=== PATIENT | female | born 1960 | race Caucasian/White ===

== ENCOUNTER 2019-01-27 08:30 | Observation (INO) | payer BC ==
[2019-01-27] MEDS ORDERED: Sodium Chloride 0.9% 1,000 ML IV ONE ×2 (08:39→10:15)
[2019-01-27] MEDS ORDERED: Pantoprazole 40 MG Vial IVPUSH ONE (08:39)
[2019-01-27] MEDS ORDERED: Sodium Chloride 0.9% 10 ML Syringe FLUSH PRN (08:39)
[2019-01-27] MEDS ORDERED: Sodium Chloride 0.9% 2.5 ML Syringe FLUSH PRN (08:39)
[2019-01-27] MEDS ORDERED: Ondansetron 4 MG/2 ML SDV IVPUSH ONE ×2 (08:39→09:10)
--- NOTE | 2019-01-27 08:44 | EDM.PDOC ---
ED HPI GENERAL MEDICAL PROBLEM - General Chief Complaint: Gastrointestinal Problem Stated Complaint: THROWING UP Time Seen by Provider: 01/27/19 08:31 - History of Present Illness INITIAL COMMENTS - FREE TEXT/NARRATIVE: HISTORY AND PHYSICAL: History of present illness: The patient is a 58-year-old female with a history of type II insulin-requiring diabetes who follows in our clinic and presents with complaints of intractable vomiting that started over the last few days. The patient says she was seen in the clinic on Monday, January 23 due to episodic vomiting but not continuous vomiting and had blood work done as well as a UA. She was told that she had a UTI and started on antibiotic which she believes to be ciprofloxacin. She said she did not start the antibiotic until Monday. She says that the vomiting increased and now is intractable and yesterday afternoon and all last evening into this morning she has not been able to take anything by mouth. She was not told anything about her lab work that was performed on Monday. She has not had any specific abdominal pain and she's not sure if the antibiotic that she is taking she is even keeping down. She says she has had vomiting of bile and she has not had a bowel movement in the last few days. She's had no fevers chills or flank pain no chest pain or shortness of breath and feels very run down. She feels very thirsty and would like to drink but she cannot keep it down. She said her fasting blood sugar this morning was 200 which is very high for her. Patient has no GI history and has no abdominal surgical history Review of systems: As per history of present illness and below otherwise all systems reviewed and negative. Past medical history: As per history of present illness and as reviewed below otherwise noncontributory. Surgical history: As per history of present illness and as reviewed below otherwise noncontributory. Social history: No reported history of drug or alcohol abuse. Family history: As per history of present illness and as reviewed below otherwise noncontributory. Physical exam: General: Well-developed well-nourished female who is nontoxic appearing and vital signs were noted by me. There is no smell of ketones on her breath HEENT: Atraumatic, normocephalic, negative for conjunctival pallor or scleral icterus, mucous membranes very tacky and pasty, throat clear, neck supple, nontender, trachea midline. Lungs: Clear to auscultation, breath sounds equal bilaterally, chest nontender. Heart: S1S2, regular rhythm and slightly tachycardic rate on my evaluation no overt murmurs Abdomen: Soft, nondistended, nontender. Negative for masses or hepatosplenomegaly. Negative for costovertebral tenderness. Bowel sounds are slightly hypoactive and there is no rebound or guarding Pelvis: Stable nontender. Genitourinary: Deferred. Rectal: Deferred. Extremities: Atraumatic, negative for cords or calf pain. Neurovascular unremarkable. Neuro: Awake, alert, oriented. Cranial nerves II through XII unremarkable. Cerebellum unremarkable. Motor and sensory unremarkable throughout. Exam nonfocal. Diagnostics: CBC CMP amylase lipase H. pylori serum ketones UA with reflex hemoglobin A1c Therapeutics: IV fluids Zofran and Protonix Levaquin The patient's labs that were performed on January 23 were reviewed by me and are significant for a UTI with a positive culture with Escherichia coli which is sensitive to all antibiotics as well as a BUN of 61 and a creatinine of 2.7, a normal potassium and a bicarbonate of 23 and with a normal CBC Patient's testing results were discussed with her and at this point she is feeling much improved and continues to have no abdominal pain and now she has no nausea or vomiting. She only made a small amount of urine. I will hang a third liter of IV fluids and will discuss this case with Dr. Mcintosh for observation admission. 1140: Dr Mcintosh is here and aware of the patient and agrees for observation admission Impression: UTI, vomiting and dehydration Definitive disposition and diagnosis as appropriate pending reevaluation and review of above. abdominal pain Pain Score (Numeric/FACES): 8 - Related Data Allergies Allergy/AdvReac Type Severity Reaction Status Date / Time amoxicillin Allergy Itching Verified 04/13/15 09:35 Sulfa (Sulfonamide Allergy Itching Verified 04/13/15 09:35 Antibiotics) -statins Allergy Body Aches Uncoded 01/27/19 08:34 Home Meds: Home Meds Lisinopril/Hydrochlorothiazide [Lisinopril-HCTZ 10-12.5 MG] 1 tab PO DAILY 01/27 [History] Ozempic 2.5 units SUBCUT WEEKLY 01/27/19 [History] metFORMIN HCl [Metformin HCl] 1 tab PO BID 01/27/19 [History] ED ROS GENERAL - Review of Systems Review Of Systems: ROS reveals no pertinent complaints other than HPI. ED EXAM, GENERAL - Physical Exam Exam: See Below (See dictation) Course - Vital Signs Last Recorded V/S: Last Vital Signs Temp 36.8 C 01/27/19 08:35 Pulse 104 H 01/27/19 08:35 Resp 18 01/27/19 08:35 BP 172/88 H 01/27/19 08:35 Pulse Ox 99 01/27/19 08:35 - Orders/Labs/Meds Orders: Active Orders 24 hr Category Date Time Status Levofloxacin/Dextrose 5%-Water [Levaquin in D5W 500 MG/ Med 01/27/19 11:27 Active 100 ML] 500 mg Premix Bag 1 bag IV ONETIME Sodium Chloride 0.9% [Normal Saline] 1,000 ml Med 01/27/19 11:30 Active IV ASDIRECTED Sodium Chloride 0.9% [Saline Flush] Med 01/27/19 08:39 Active 10 ml FLUSH ASDIRECTED PRN Sodium Chloride 0.9% [Saline Flush] Med 01/27/19 08:39 Active 2.5 ml FLUSH ASDIRECTED PRN Saline Lock Insert [OM.PC] Stat Oth 01/27/19 08:39 Ordered Medication Orders Levofloxacin/Dextrose 500 mg/ (Premix) 100 mls @ 100 mls/hr IV ONETIME ONE Stop: 01/27/19 12:26 Last Admin: 01/27/19 11:40 Dose: 100 mls/hr Sodium Chloride (Normal Saline) 1,000 mls @ 150 mls/hr IV ASDIRECTED CLARISSA Last Admin: 01/27/19 11:30 Dose: 999 mls/hr Sodium Chloride (Saline Flush) 10 ml FLUSH ASDIRECTED PRN PRN Reason: Keep Vein Open Last Admin: 01/27/19 09:08 Dose: 10 ml Sodium Chloride (Saline Flush) 2.5 ml FLUSH ASDIRECTED PRN PRN Reason: Keep Vein Open Last Admin: 01/27/19 09:08 Dose: 2.5 ml Labs: Laboratory Tests 01/27/19 01/27/19 01/27/19 Range/Units 08:55 08:55 08:55 WBC 10.46 (4.0-11.0) K/uL RBC 4.59 (4.30-5.90) M/uL Hgb 12.6 (12.0-16.0) g/dL Hct 38.0 (36.0-46.0) % MCV 82.8 (80.0-98.0) fL MCH 27.5 (27.0-32.0) pg MCHC 33.2 (31.0-37.0) g/dL RDW Std Deviation 41.1 (28.0-62.0) fl RDW Coeff of Stefani 14 (11.0-15.0) % Plt Count 374 (150-400) K/uL MPV 10.80 (7.40-12.00) fL Neut % (Auto) 89.2 H (48.0-80.0) % Lymph % (Auto) 6.5 L (16.0-40.0) % Daniels % (Auto) 3.9 (0.0-15.0) % Eos % (Auto) 0.0 (0.0-7.0) % Baso % (Auto) 0.4 (0.0-1.5) % Neut # (Auto) 9.3 H (1.4-5.7) K/uL Lymph # (Auto) 0.7 (0.6-2.4) K/uL Daniels # (Auto) 0.4 (0.0-0.8) K/uL Eos # (Auto) 0.0 (0.0-0.7) K/uL Baso # (Auto) 0.0 (0.0-0.1) K/uL Nucleated RBC % 0.0 /100WBC Nucleated RBCs # 0 K/uL Sodium 138 (136-145) mmol/L Potassium 4.3 (3.5-5.1) mmol/L Chloride 98 (98-107) mmol/L Carbon Dioxide 20.9 L (21.0-32.0) mmol/L BUN 77 H (7.0-18.0) mg/dL Creatinine 3.4 H (0.6-1.0) mg/dL Est Cr Clr Drug Dosing 16.47 mL/min Estimated GFR (MDRD) 13.8 ml/min Glucose 223 H (74-106) mg/dL Hemoglobin A1c (4.5-6.2) % Calcium 9.6 (8.5-10.1) mg/dL Total Bilirubin 0.6 (0.2-1.0) mg/dL AST 8 L (15-37) IU/L ALT 16 (14-63) IU/L Alkaline Phosphatase 54 (46-116) U/L Total Protein 7.5 (6.4-8.2) g/dL Albumin 4.0 (3.4-5.0) g/dL Globulin 3.5 (2.6-4.0) g/dL Albumin/Globulin Ratio 1.1 (0.9-1.6) Amylase 43 (25-115) U/L Lipase 144 (73-393) U/L Urine Color Urine Appearance Urine pH (5.0-8.0) Ur Specific [place]oard (1.001-1.035) Urine Protein (NEGATIVE) mg/dL Urine Glucose (UA) (NEGATIVE) mg/dL Urine Ketones (NEGATIVE) mg/dL Urine Occult Blood (NEGATIVE) Urine Nitrite (NEGATIVE) Urine Bilirubin (NEGATIVE) Urine Ictotest Urine Urobilinogen (<2.0) EU/dL Ur Leukocyte Esterase (NEGATIVE) Urine RBC (0-2/HPF) Urine WBC (0-5/HPF) Ur Epithelial Cells (NONE-FEW) Urine Bacteria (NEGATIVE) Hyaline Casts (0-2/LPF) Ketones SMALL H (NEG) H. pylori IgG Antibody (NEG) 01/27/19 01/27/19 01/27/19 Range/Units 08:55 08:55 10:48 WBC (4.0-11.0) K/uL RBC (4.30-5.90) M/uL Hgb (12.0-16.0) g/dL Hct (36.0-46.0) % MCV (80.0-98.0) fL MCH (27.0-32.0) pg MCHC (31.0-37.0) g/dL RDW Std Deviation (28.0-62.0) fl RDW Coeff of Stefani (11.0-15.0) % Plt Count (150-400) K/uL MPV (7.40-12.00) fL Neut % (Auto) (48.0-80.0) % Lymph % (Auto) (16.0-40.0) % Daniels % (Auto) (0.0-15.0) % Eos % (Auto) (0.0-7.0) % Baso % (Auto) (0.0-1.5) % Neut # (Auto) (1.4-5.7) K/uL Lymph # (Auto) (0.6-2.4) K/uL Daniels # (Auto) (0.0-0.8) K/uL Eos # (Auto) (0.0-0.7) K/uL Baso # (Auto) (0.0-0.1) K/uL Nucleated RBC % /100WBC Nucleated RBCs # K/uL Sodium (136-145) mmol/L Potassium (3.5-5.1) mmol/L Chloride (98-107) mmol/L Carbon Dioxide (21.0-32.0) mmol/L BUN (7.0-18.0) mg/dL Creatinine (0.6-1.0) mg/dL Est Cr Clr Drug Dosing mL/min Estimated GFR (MDRD) ml/min Glucose (74-106) mg/dL Hemoglobin A1c 7.1 H (4.5-6.2) % Calcium (8.5-10.1) mg/dL Total Bilirubin (0.2-1.0) mg/dL AST (15-37) IU/L ALT (14-63) IU/L Alkaline Phosphatase (46-116) U/L Total Protein (6.4-8.2) g/dL Albumin (3.4-5.0) g/dL Globulin (2.6-4.0) g/dL Albumin/Globulin Ratio (0.9-1.6) Amylase (25-115) U/L Lipase (73-393) U/L Urine Color YELLOW Urine Appearance CLEAR Urine pH 5.0 (5.0-8.0) Ur Specific [place] 1.025 (1.001-1.035) Urine Protein TRACE H (NEGATIVE) mg/dL Urine Glucose (UA) 250 H (NEGATIVE) mg/dL Urine Ketones 15 H (NEGATIVE) mg/dL Urine Occult Blood TRACE-LYSED H (NEGATIVE) Urine Nitrite NEGATIVE (NEGATIVE) Urine Bilirubin SMALL H (NEGATIVE) Urine Ictotest NEGATIVE Urine Urobilinogen 0.2 (<2.0) EU/dL Ur Leukocyte Esterase NEGATIVE (NEGATIVE) Urine RBC 0-1 (0-2/HPF) Urine WBC 2-4 (0-5/HPF) Ur Epithelial Cells MODERATE (NONE-FEW) Urine Bacteria FEW (NEGATIVE) Hyaline Casts 1-2 (0-2/LPF) Ketones (NEG) H. pylori IgG Antibody NEGATIVE (NEG) Meds: Medications Generic Name Dose Route Start Last Admin Trade Name Losq PRN Reason Stop Dose Admin Levofloxacin/Dextrose 500 mg/ 100 mls @ 100 mls/hr 01/27/19 11:27 01/27/19 11 :40 Premix IV 01/27/19 12:26 100 mls/hr ONETIME ONE Administration Sodium Chloride 1,000 mls @ 150 mls/hr 01/27/19 11:30 01/27/19 11:30 Normal Saline IV 999 mls/hr ASDIRECTED CLARISSA Administration Sodium Chloride 10 ml 01/27/19 08:39 01/27/19 09:08 Saline Flush FLUSH 10 ml ASDIRECTED PRN Administration Keep Vein Open Sodium Chloride 2.5 ml 01/27/19 08:39 01/27/19 09:08 Saline Flush FLUSH 2.5 ml ASDIRECTED PRN Administration Keep Vein Open Discontinued Medications Generic Name Dose Route Start Last Admin Trade Name Losq PRN Reason Stop Dose Admin Sodium Chloride 1,000 mls @ 999 mls/hr 01/27/19 08:39 01/27/19 09:03 Normal Saline IV 01/27/19 09:39 999 mls/hr STAT ONE Administration Sterile Water Confirm 01/27/19 09:01 01/27/19 09:15 Sterile Water For Injection Administered 01/27/19 09:02 Not Given Dose 20 mls @ as directed .ROUTE .STK-MED ONE Sodium Chloride 1,000 mls @ 999 mls/hr 01/27/19 10:15 01/27/19 10:15 Normal Saline IV 01/27/19 11:15 999 mls/hr .Bolus ONE Administration Ondansetron HCl 4 mg 01/27/19 08:39 01/27/19 09:05 Zofran IVPUSH 01/27/19 08:40 4 mg ONETIME ONE Administration Ondansetron HCl 4 mg 01/27/19 09:10 01/27/19 09:18 Zofran IVPUSH 01/27/19 09:11 4 mg ONETIME ONE Administration Pantoprazole Sodium 80 mg 01/27/19 08:39 01/27/19 09:10 Protonix Iv IVPUSH 01/27/19 08:40 80 mg .BOLUS ONE Administration Departure - Departure Time of Disposition: 11:46 Disposition: Refer to Observation Condition: Good Clinical Impression: Vomiting, Dehydration UTI (urinary tract infection) Qualifiers: Urinary tract infection type: site unspecified Hematuria presence: without hematuria Qualified Code(s): N39.0 - Urinary tract infection, site not specified - Discharge Information Referrals: PCP,Unknown [Primary Care Provider] - Forms: ED Department Discharge - My Orders Last 24 Hours: My Active Orders 01/27/19 08:39 Sodium Chloride 0.9% [Saline Flush] 10 ml FLUSH ASDIRECTED PRN Sodium Chloride 0.9% [Saline Flush] 2.5 ml FLUSH ASDIRECTED PRN Saline Lock Insert [OM.PC] Stat 01/27/19 11:27 Levofloxacin/Dextrose 5%-Water [Levaquin in D5W 500 MG/100 ML] 500 mg Premix Bag 1 bag IV ONETIME 01/27/19 11:30 Sodium Chloride 0.9% [Normal Saline] 1,000 ml IV ASDIRECTED - Assessment/Plan Last 24 Hours: My Active Orders 01/27/19 08:39 Sodium Chloride 0.9% [Saline Flush] 10 ml FLUSH ASDIRECTED PRN Sodium Chloride 0.9% [Saline Flush] 2.5 ml FLUSH ASDIRECTED PRN Saline Lock Insert [OM.PC] Stat 01/27/19 11:27 Levofloxacin/Dextrose 5%-Water [Levaquin in D5W 500 MG/100 ML] 500 mg Premix Bag 1 bag IV ONETIME 01/27/19 11:30 Sodium Chloride 0.9% [Normal Saline] 1,000 ml IV ASDIRECTED
[2019-01-27] MEDS ORDERED: Water For Injection, Sterile 20 ML ONE (09:01)
[2019-01-27 09:23] LABS: HEMOGLOBIN A1C 7.1 % (4.5-6.2)
[2019-01-27] MEDS ORDERED: Levofloxacin/Dextrose 5%-Water 500 MG in Premix Bag 1 BAG IV ONE (11:27)
[2019-01-27] MEDS ORDERED: Sodium Chloride 0.9% 1,000 ML IV SCH (11:30)
[2019-01-27] MEDS ORDERED: oxyCODONE 5 MG Tab PO PRN (12:19)
[2019-01-27] MEDS ORDERED: Acetaminophen 325 MG Tab PO PRN (12:19)
[2019-01-27] MEDS ORDERED: Temazepam 15 MG Cap PO PRN (12:19)
[2019-01-27] MEDS ORDERED: Ondansetron 4 MG/2 ML SDV IVPUSH PRN (12:19)
[2019-01-27] MEDS ORDERED: Docusate Sodium 100 MG Cap PO PRN (12:19)
[2019-01-27] MEDS ORDERED: Enoxaparin 30 MG/0.3 ML Syringe SUBCUT SCH (12:30)
--- NOTE | 2019-01-27 12:38 | PCM.HP ---
H&P History of Present Illness - General Date of Service: 01/27/19 Admit Problem/Dx: Admission Diagnosis/Problem Admission Diagnosis/Problem Dehydration, UTI, poorly controlled diabetes, intractable nausea and vomiting Source of Information: Patient History Limitations: Reports: No Limitations - History of Present Illness Initial Comments - Free Text/Narative: The patient is a 58-year-old lady who presented to the emergency department with the chief complaint of nausea and vomiting. She has diabetes mellitus type 2 and had been recently started on the medication. Patient reports that she has been throwing up and unable to keep any medications down for at least the past week. She feels that she is very dehydrated. The patient also had been told that she was been started on an antibiotic for urinary tract infection which she has not been able to keep down. The patient had been on ciprofloxacin. The patient says that she has not had any fever or chills. No flank pain. No short of breath. She just feels very fatigued. She is also admitting to extreme thirst and not been able to keep fluid and food down. The patient has denied any hematemesis. The patient has been in her usual state of health. She admits to having poorly controlled diabetes and reportedly her last hemoglobin A1c was around 9%. Onset of Symptoms: Reports: Gradual Duration of Symptoms: Reports: Day(s): Location: Reports: Abdomen Quality: Reports: Ache Improves with: Reports: Rest Worsens with: Reports: Eating Context: Denies: Sick Contact Associated Symptoms: Reports: Loss of Appetite, Malaise abdominal pain Pain Score (Numeric/FACES): 8 - Related Data Allergies/Adverse Reactions: Allergies Allergy/AdvReac Type Severity Reaction Status Date / Time amoxicillin Allergy Itching Verified 04/13/15 09:35 Sulfa (Sulfonamide Allergy Itching Verified 04/13/15 09:35 Antibiotics) -statins Allergy Body Aches Uncoded 01/27/19 08:34 Home Medications: Home Meds Lisinopril/Hydrochlorothiazide [Lisinopril-HCTZ 10-12.5 MG] 2 tab PO DAILY 01/27 [History] Ozempic 2.5 units SUBCUT WEEKLY 01/27/19 [History] metFORMIN HCl [Metformin HCl] 1,000 mg PO BID 01/27/19 [History] Past Medical History HEENT History: Reports: Allergic Rhinitis Cardiovascular History: Reports: Hypertension, Other (See Below) 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 Respiratory History: Reports: None Gastrointestinal History: Reports: None Genitourinary History: Reports: Chronic Renal Insuffiency, UTI, Recurrent Musculoskeletal History: Reports: None Neurological History: Reports: None Psychiatric History: Reports: None Endocrine/Metabolic History: Reports: Diabetes, Type II, Obesity/BMI 30+ Hematologic History: Reports: None Immunologic History: Reports: None Dermatologic History: Reports: None - Infectious Disease History Infectious Disease History: Reports: Chicken Pox - Past Surgical History HEENT Surgical History: Reports: Oral Surgery Social & Family History - Tobacco Use Smoking Status *Q: Never Smoker - Alcohol Use Alcohol Use History: No - Recreational Drug Use Recreational Drug Use: No - Living Situation & Occupation Living situation: Reports: , with Spouse Occupation: Employed H&P Review of Systems - Review of Systems: Review Of Systems: See Below General: Reports: Malaise, Weakness HEENT: Reports: No Symptoms Pulmonary: Reports: No Symptoms Cardiovascular: Reports: No Symptoms Gastrointestinal: Reports: Abdominal Pain, Anorexia, Nausea, Vomiting Genitourinary: Reports: Burning, Pain Musculoskeletal: Reports: No Symptoms Skin: Reports: No Symptoms Psychiatric: Reports: No Symptoms Neurological: Reports: No Symptoms Hematologic/Lymphatic: Reports: No Symptoms Immunologic: Reports: No Symptoms Exam - Exam Exam: See Below - Vital Signs Vital Signs: Last Vital Signs Temp 36.8 C 01/27/19 08:35 Pulse 104 H 01/27/19 08:35 Resp 18 01/27/19 08:35 BP 172/88 H 01/27/19 08:35 Pulse Ox 99 01/27/19 08:35 Weight: 85.275 kg - Exam Quality Assessment: Supplemental Oxygen General: Alert, Oriented, Cooperative, Mild Distress HEENT: Conjunctiva Clear, EACs Clear, EOMI, Pupils Equal, PERRLA. No: Mucosa Moist & [place] (Dry) Neck: Supple, Trachea Midline. No: Carotid Bruit Lungs: Clear to Auscultation, Normal Respiratory Effort Cardiovascular: Regular Rate, Regular Rhythm GI/Abdominal Exam: Normal Bowel Sounds, Soft, Non-Tender, No Distention, Other ( Obese) Back Exam: Normal Inspection, Full Range of Motion Extremities: Normal Inspection, No Pedal Edema Skin: Warm, Dry, Intact Neurological: Cranial Nerves Intact Neuro Extensive - Mental Status: Alert, Oriented x3 Psychiatric: Alert, Normal Affect, Normal Mood - Patient Data Lab Results Last 24 hrs: Laboratory Results - last 24 hr 01/27/19 01/27/19 01/27/19 Range/Units 08:55 08:55 08:55 WBC 10.46 (4.0-11.0) K/uL RBC 4.59 (4.30-5.90) M/uL Hgb 12.6 (12.0-16.0) g/dL Hct 38.0 (36.0-46.0) % MCV 82.8 (80.0-98.0) fL MCH 27.5 (27.0-32.0) pg MCHC 33.2 (31.0-37.0) g/dL RDW Std Deviation 41.1 (28.0-62.0) fl RDW Coeff of Stefani 14 (11.0-15.0) % Plt Count 374 (150-400) K/uL MPV 10.80 (7.40-12.00) fL Neut % (Auto) 89.2 H (48.0-80.0) % Lymph % (Auto) 6.5 L (16.0-40.0) % [place] % (Auto) 3.9 (0.0-15.0) % Eos % (Auto) 0.0 (0.0-7.0) % Baso % (Auto) 0.4 (0.0-1.5) % Neut # (Auto) 9.3 H (1.4-5.7) K/uL Lymph # (Auto) 0.7 (0.6-2.4) K/uL [place] # (Auto) 0.4 (0.0-0.8) K/uL Eos # (Auto) 0.0 (0.0-0.7) K/uL Baso # (Auto) 0.0 (0.0-0.1) K/uL Nucleated RBC % 0.0 /100WBC Nucleated RBCs # 0 K/uL Sodium 138 (136-145) mmol/L Potassium 4.3 (3.5-5.1) mmol/L Chloride 98 (98-107) mmol/L Carbon Dioxide 20.9 L (21.0-32.0) mmol/L BUN 77 H (7.0-18.0) mg/dL Creatinine 3.4 H (0.6-1.0) mg/dL Est Cr Clr Drug Dosing 16.47 mL/min Estimated GFR (MDRD) 13.8 ml/min Glucose 223 H (74-106) mg/dL Hemoglobin A1c (4.5-6.2) % Calcium 9.6 (8.5-10.1) mg/dL Total Bilirubin 0.6 (0.2-1.0) mg/dL AST 8 L (15-37) IU/L ALT 16 (14-63) IU/L Alkaline Phosphatase 54 (46-116) U/L Total Protein 7.5 (6.4-8.2) g/dL Albumin 4.0 (3.4-5.0) g/dL Globulin 3.5 (2.6-4.0) g/dL Albumin/Globulin Ratio 1.1 (0.9-1.6) Amylase 43 (25-115) U/L Lipase 144 (73-393) U/L Urine Color Urine Appearance Urine pH (5.0-8.0) Ur Specific [place] (1.001-1.035) Urine Protein (NEGATIVE) mg/dL Urine Glucose (UA) (NEGATIVE) mg/dL Urine Ketones (NEGATIVE) mg/dL Urine Occult Blood (NEGATIVE) Urine Nitrite (NEGATIVE) Urine Bilirubin (NEGATIVE) Urine Ictotest Urine Urobilinogen (<2.0) EU/dL Ur Leukocyte Esterase (NEGATIVE) Urine RBC (0-2/HPF) Urine WBC (0-5/HPF) Ur Epithelial Cells (NONE-FEW) Urine Bacteria (NEGATIVE) Hyaline Casts (0-2/LPF) Ketones SMALL H (NEG) H. pylori IgG Antibody (NEG) 01/27/19 01/27/19 01/27/19 Range/Units 08:55 08:55 10:48 WBC (4.0-11.0) K/uL RBC (4.30-5.90) M/uL Hgb (12.0-16.0) g/dL Hct (36.0-46.0) % MCV (80.0-98.0) fL MCH (27.0-32.0) pg MCHC (31.0-37.0) g/dL RDW Std Deviation (28.0-62.0) fl RDW Coeff of Stefani (11.0-15.0) % Plt Count (150-400) K/uL MPV (7.40-12.00) fL Neut % (Auto) (48.0-80.0) % Lymph % (Auto) (16.0-40.0) % [place] % (Auto) (0.0-15.0) % Eos % (Auto) (0.0-7.0) % Baso % (Auto) (0.0-1.5) % Neut # (Auto) (1.4-5.7) K/uL Lymph # (Auto) (0.6-2.4) K/uL [place] # (Auto) (0.0-0.8) K/uL Eos # (Auto) (0.0-0.7) K/uL Baso # (Auto) (0.0-0.1) K/uL Nucleated RBC % /100WBC Nucleated RBCs # K/uL Sodium (136-145) mmol/L Potassium (3.5-5.1) mmol/L Chloride (98-107) mmol/L Carbon Dioxide (21.0-32.0) mmol/L BUN (7.0-18.0) mg/dL Creatinine (0.6-1.0) mg/dL Est Cr Clr Drug Dosing mL/min Estimated GFR (MDRD) ml/min Glucose (74-106) mg/dL Hemoglobin A1c 7.1 H (4.5-6.2) % Calcium (8.5-10.1) mg/dL Total Bilirubin (0.2-1.0) mg/dL AST (15-37) IU/L ALT (14-63) IU/L Alkaline Phosphatase (46-116) U/L Total Protein (6.4-8.2) g/dL Albumin (3.4-5.0) g/dL Globulin (2.6-4.0) g/dL Albumin/Globulin Ratio (0.9-1.6) Amylase (25-115) U/L Lipase (73-393) U/L Urine Color YELLOW Urine Appearance CLEAR Urine pH 5.0 (5.0-8.0) Ur Specific [place] 1.025 (1.001-1.035) Urine Protein TRACE H (NEGATIVE) mg/dL Urine Glucose (UA) 250 H (NEGATIVE) mg/dL Urine Ketones 15 H (NEGATIVE) mg/dL Urine Occult Blood TRACE-LYSED H (NEGATIVE) Urine Nitrite NEGATIVE (NEGATIVE) Urine Bilirubin SMALL H (NEGATIVE) Urine Ictotest NEGATIVE Urine Urobilinogen 0.2 (<2.0) EU/dL Ur Leukocyte Esterase NEGATIVE (NEGATIVE) Urine RBC 0-1 (0-2/HPF) Urine WBC 2-4 (0-5/HPF) Ur Epithelial Cells MODERATE (NONE-FEW) Urine Bacteria FEW (NEGATIVE) Hyaline Casts 1-2 (0-2/LPF) Ketones (NEG) H. pylori IgG Antibody NEGATIVE (NEG) Result Diagrams: 01/27/19 08:55 01/27/19 08:55 - Problem List (1) UTI (urinary tract infection) SNOMED Code(s): 43339302 ICD Code: N39.0 - URINARY TRACT INFECTION, SITE NOT SPECIFIED Status: Acute Priority: High Current Visit: Yes Qualifiers: Urinary tract infection type: site unspecified Hematuria presence: without hematuria Qualified Code(s): N39.0 - Urinary tract infection, site not specified (2) Intractable nausea and vomiting SNOMED Code(s): 578739059 ICD Code: R11.2 - NAUSEA WITH VOMITING, UNSPECIFIED Status: Acute Priority: High Current Visit: Yes Qualifiers: Vomiting type: unspecified Qualified Code(s): R11.2 - Nausea with vomiting , unspecified (3) Diabetes mellitus type 2, uncontrolled, with complications SNOMED Code(s): 96755517, 040731357 ICD Code: E11.8 - TYPE 2 DIABETES MELLITUS WITH UNSPECIFIED COMPLICATIONS; E11.65 - TYPE 2 DIABETES MELLITUS WITH HYPERGLYCEMIA Status: Chronic Priority: High Current Visit: Yes (4) Hypertension SNOMED Code(s): 63935880 ICD Code: I10 - ESSENTIAL (PRIMARY) HYPERTENSION Status: Chronic Priority : High Current Visit: Yes Qualifiers: Hypertension type: essential hypertension Qualified Code(s): I10 - Essential (primary) hypertension (5) Obesity (BMI 30-39.9) SNOMED Code(s): 882727484, 276389722 ICD Code: E66.9 - OBESITY, UNSPECIFIED Status: Chronic Priority: Medium Current Visit: Yes (6) Dehydration SNOMED Code(s): 29880216 ICD Code: E86.0 - DEHYDRATION Status: Acute Priority: High Current Visit: Yes Problem List Initiated/Reviewed/Updated: Yes Orders Last 24hrs: Active Orders 24 hr Category Date Time Status Patient Status [ADT] Stat ADT 01/27/19 11:46 Active Blood Glucose Check, Bedside [RC] WITHMEALSANDBED Care 01/27/19 12:19 Active Diabetes Education [RC] Click to Edit Care 01/27/19 12:21 Active Oxygen Therapy [RC] PRN Care 01/27/19 12:19 Active VTE/DVT Education [RC] PER UNIT ROUTINE Care 01/27/19 12:19 Active Vital Signs [RC] Q4H Care 01/27/19 12:19 Active [place] [employer] Diet [DIET] Diet 01/27/19 Lunch Active CBC WITH AUTO DIFF [HEME] AM Lab 01/28/19 05:11 Ordered COMPREHENSIVE METABOLIC PN,CMP [CHEM] AM Lab 01/28/19 05:11 Ordered Acetaminophen [Tylenol] Med 01/27/19 12:19 Active 650 mg PO Q4H PRN Docusate Sodium [Colace] Med 01/27/19 12:19 Active 100 mg PO BID PRN Enoxaparin [Lovenox] Med 01/27/19 12:30 Active 30 mg SUBCUT Q24H Insulin Aspart [NovoLOG] Med 01/27/19 21:00 Active See Protocol SUBCUT ACBREAKFASTANDBED Lisinopril/Hydrochlorothiazide [Lisinopril-HCTZ 10-12.5 Med 01/28/19 09:00 Active MG] 1 tab PO DAILY Ondansetron [Zofran] Med 01/27/19 12:19 Active 4 mg IVPUSH Q6H PRN Sodium Chloride 0.9% [Normal Saline] 1,000 ml Med 01/27/19 11:30 Active IV ASDIRECTED Sodium Chloride 0.9% [Normal Saline] 1,000 ml Med 01/27/19 12:30 Active IV ASDIRECTED Sodium Chloride 0.9% [Saline Flush] Med 01/27/19 08:39 Active 10 ml FLUSH ASDIRECTED PRN Sodium Chloride 0.9% [Saline Flush] Med 01/27/19 08:39 Active 2.5 ml FLUSH ASDIRECTED PRN Temazepam [Restoril] Med 01/27/19 12:19 Active 15 mg PO BEDTIME PRN oxyCODONE Med 01/27/19 12:19 Active 5 mg PO Q4H PRN Glucose Management Sub Q Reflex [OM.PC] Click To Edit Oth 01/27/19 12:19 Ordered Saline Lock Insert [OM.PC] Stat Oth 01/27/19 08:39 Ordered Resuscitation Status Routine Resus Stat 01/27/19 12:19 Ordered Medication Orders Acetaminophen (Tylenol) 650 mg PO Q4H PRN PRN Reason: Pain (Mild 1-3)/fever Docusate Sodium (Colace) 100 mg PO BID PRN PRN Reason: Constipation Enoxaparin Sodium (Lovenox) 30 mg SUBCUT Q24H [facility] Lisinopril/HCTZ (Lisinopril-Hctz 10-12.5 Mg) 1 tab PO DAILY [facility] Sodium Chloride (Normal Saline) 1,000 mls @ 150 mls/hr IV ASDIRECTED [facility] Last Admin: 01/27/19 11:30 Dose: 999 mls/hr Sodium Chloride (Normal Saline) 1,000 mls @ 125 mls/hr IV ASDIRECTED [facility] Insulin Aspart (Novolog) 0 unit SUBCUT ACBREAKFASTANDBED [facility]; Protocol Ondansetron HCl (Zofran) 4 mg IVPUSH Q6H PRN PRN Reason: Nausea/Vomiting Oxycodone HCl (Oxycodone) 5 mg PO Q4H PRN PRN Reason: Pain (moderate 4-6) Sodium Chloride (Saline Flush) 10 ml FLUSH ASDIRECTED PRN PRN Reason: Keep Vein Open Last Admin: 01/27/19 09:08 Dose: 10 ml Sodium Chloride (Saline Flush) 2.5 ml FLUSH ASDIRECTED PRN PRN Reason: Keep Vein Open Last Admin: 01/27/19 09:08 Dose: 2.5 ml Temazepam (Restoril) 15 mg PO BEDTIME PRN PRN Reason: Sleep Assessment/Plan Comment:: The patient is a 58-year-old lady who has been admitted primarily out of concern for intractable nausea and vomiting. She is also dehydrated and therefore will be kept on IV normal saline at 125 mL per hour. The patient also be kept on moderate dose sliding scale insulin with Accu-Cheks before meals and at bedtime. The patient will have diabetic diet as appropriate as tolerated. The patient has a partially treated UTI and cultures are currently pending. The patient also will have Rocephin 1 g IV starting tomorrow. The patient is also noted to have a reduction in her EGFR with a BU in a 77 and creatinine of 3.4. The patient likely has chronic kidney disease and with hydration she should experience some improvement in her EGFR. The patient will be kept on heparin for DVT prophylaxis as well as encouraging ambulation. I hemoglobin A1c has been ordered and it shows that 7.1%. The concern is that the patient may have developed diabetic gastroparesis although this is less likely and may be the result of new medication or ciprofloxacin. With the patient's symptoms resolved and her dehydration improved to likely be appropriate for discharge in 1-2 days.
[2019-01-27] MEDS ORDERED: Heparin Sodium 5,000 Units/ML Vial SUBCUT SCH (15:45)
[2019-01-27] MEDS ORDERED: Promethazine 25 MG/ML SDV IM PRN (16:08)
[2019-01-27] MEDS: Heparin Sodium 5,000 Units/ML Vial SUBCUT SCH (16:10)
[2019-01-27] MEDS: Insulin Aspart 100 Units/ML 3 ML Pen SUBCUT SCH ×2 (16:15→21:56)
[2019-01-27] MEDS: Sodium Chloride 0.9% 1,000 ML IV SCH (17:14)
[2019-01-27] MEDS ORDERED: Insulin Aspart 100 Units/ML 3 ML Pen SUBCUT SCH (21:00)
[2019-01-28] MEDS: Sodium Chloride 0.9% 1,000 ML IV SCH ×3 (01:29→18:22)
[2019-01-28] MEDS: Heparin Sodium 5,000 Units/ML Vial SUBCUT SCH ×3 (06:32→21:01)
[2019-01-28] MEDS: Insulin Aspart 100 Units/ML 3 ML Pen SUBCUT SCH ×4 (07:24→20:56)
[2019-01-28] MEDS: Lisinopril/Hydrochlorothiazide 10-12.5 MG Tab PO SCH (09:20)
[2019-01-28] MEDS: cefTRIAXone 1 GM in Premix Bag 1 BAG IV SCH (09:21)
--- NOTE | 2019-01-28 10:41 | PCM.PN ---
- General Info Date of Service: 01/28/19 Subjective Update: 58F hx of T2DM, presenting with MERY, nausea and vomiting presumed to be secondary to medication s/e or UTI. She feels much better today, has been tolerating PO well. She denies any nausea, fever today. She denies any pain, dysuria. - Review of Systems General: Reports: Other (see hpi) - Patient Data Vitals - Most Recent: Last Vital Signs Temp 36.2 C 01/28/19 08:00 Pulse 90 01/28/19 08:00 Resp 16 01/28/19 08:00 BP 149/86 H 01/28/19 08:00 Pulse Ox 97 01/28/19 08:00 Weight - Most Recent: 85.275 kg I&O - Last 24 Hours: Intake & Output 01/27/19 01/28/19 01/28/19 22:59 06:59 14:59 Intake Total 819 1319 340 Output Total 350 1100 Balance 469 219 340 Lab Results Last 24 Hours: Laboratory Results - last 24 hr 01/27/19 01/27/19 01/27/19 Range/Units 10:48 16:11 20:42 WBC (4.0-11.0) K/uL RBC (4.30-5.90) M/uL Hgb (12.0-16.0) g/dL Hct (36.0-46.0) % MCV (80.0-98.0) fL MCH (27.0-32.0) pg MCHC (31.0-37.0) g/dL RDW Std Deviation (28.0-62.0) fl RDW Coeff of Stefani (11.0-15.0) % Plt Count (150-400) K/uL MPV (7.40-12.00) fL Neut % (Auto) (48.0-80.0) % Lymph % (Auto) (16.0-40.0) % [place] % (Auto) (0.0-15.0) % Eos % (Auto) (0.0-7.0) % Baso % (Auto) (0.0-1.5) % Neut # (Auto) (1.4-5.7) K/uL Lymph # (Auto) (0.6-2.4) K/uL [place] # (Auto) (0.0-0.8) K/uL Eos # (Auto) (0.0-0.7) K/uL Baso # (Auto) (0.0-0.1) K/uL Nucleated RBC % /100WBC Nucleated RBCs # K/uL Sodium (136-145) mmol/L Potassium (3.5-5.1) mmol/L Chloride (98-107) mmol/L Carbon Dioxide (21.0-32.0) mmol/L BUN (7.0-18.0) mg/dL Creatinine (0.6-1.0) mg/dL Est Cr Clr Drug Dosing mL/min Estimated GFR (MDRD) ml/min Glucose (74-106) mg/dL POC Glucose 116 H 122 H (60-110) mg/dL Calcium (8.5-10.1) mg/dL Total Bilirubin (0.2-1.0) mg/dL AST (15-37) IU/L ALT (14-63) IU/L Alkaline Phosphatase (46-116) U/L Total Protein (6.4-8.2) g/dL Albumin (3.4-5.0) g/dL Globulin (2.6-4.0) g/dL Albumin/Globulin Ratio (0.9-1.6) Vitamin B12 (193-986) pg/mL Folate (8.60-58.90) ng/mL Urine Color YELLOW Urine Appearance CLEAR Urine pH 5.0 (5.0-8.0) Ur Specific [place] 1.025 (1.001-1.035) Urine Protein TRACE H (NEGATIVE) mg/dL Urine Glucose (UA) 250 H (NEGATIVE) mg/dL Urine Ketones 15 H (NEGATIVE) mg/dL Urine Occult Blood TRACE-LYSED H (NEGATIVE) Urine Nitrite NEGATIVE (NEGATIVE) Urine Bilirubin SMALL H (NEGATIVE) Urine Ictotest NEGATIVE Urine Urobilinogen 0.2 (<2.0) EU/dL Ur Leukocyte Esterase NEGATIVE (NEGATIVE) Urine RBC 0-1 (0-2/HPF) Urine WBC 2-4 (0-5/HPF) Ur Epithelial Cells MODERATE (NONE-FEW) Urine Bacteria FEW (NEGATIVE) Hyaline Casts 1-2 (0-2/LPF) 01/28/19 01/28/19 01/28/19 Range/Units 06:10 06:13 06:13 WBC 7.23 (4.0-11.0) K/uL RBC 3.71 L (4.30-5.90) M/uL Hgb 10.2 L (12.0-16.0) g/dL Hct 30.6 L (36.0-46.0) % MCV 82.5 (80.0-98.0) fL MCH 27.5 (27.0-32.0) pg MCHC 33.3 (31.0-37.0) g/dL RDW Std Deviation 41.3 (28.0-62.0) fl RDW Coeff of Stefani 14 (11.0-15.0) % Plt Count 271 (150-400) K/uL MPV 10.20 (7.40-12.00) fL Neut % (Auto) 65.9 (48.0-80.0) % Lymph % (Auto) 20.7 (16.0-40.0) % [place] % (Auto) 11.6 (0.0-15.0) % Eos % (Auto) 1.2 (0.0-7.0) % Baso % (Auto) 0.6 (0.0-1.5) % Neut # (Auto) 4.8 (1.4-5.7) K/uL Lymph # (Auto) 1.5 (0.6-2.4) K/uL [place] # (Auto) 0.8 (0.0-0.8) K/uL Eos # (Auto) 0.1 (0.0-0.7) K/uL Baso # (Auto) 0.0 (0.0-0.1) K/uL Nucleated RBC % 0.0 /100WBC Nucleated RBCs # 0 K/uL Sodium 141 (136-145) mmol/L Potassium 3.8 (3.5-5.1) mmol/L Chloride 106 (98-107) mmol/L Carbon Dioxide 23.9 (21.0-32.0) mmol/L BUN 47 H (7.0-18.0) mg/dL Creatinine 2.0 H (0.6-1.0) mg/dL Est Cr Clr Drug Dosing 28.00 mL/min Estimated GFR (MDRD) 25.4 ml/min Glucose 100 (74-106) mg/dL POC Glucose 97 (60-110) mg/dL Calcium 8.4 L (8.5-10.1) mg/dL Total Bilirubin 0.5 (0.2-1.0) mg/dL AST 10 L (15-37) IU/L ALT 10 L (14-63) IU/L Alkaline Phosphatase 40 L (46-116) U/L Total Protein 5.8 L (6.4-8.2) g/dL Albumin 3.0 L (3.4-5.0) g/dL Globulin 2.8 (2.6-4.0) g/dL Albumin/Globulin Ratio 1.1 (0.9-1.6) Vitamin B12 (193-986) pg/mL Folate (8.60-58.90) ng/mL Urine Color Urine Appearance Urine pH (5.0-8.0) Ur Specific [place] (1.001-1.035) Urine Protein (NEGATIVE) mg/dL Urine Glucose (UA) (NEGATIVE) mg/dL Urine Ketones (NEGATIVE) mg/dL Urine Occult Blood (NEGATIVE) Urine Nitrite (NEGATIVE) Urine Bilirubin (NEGATIVE) Urine Ictotest Urine Urobilinogen (<2.0) EU/dL Ur Leukocyte Esterase (NEGATIVE) Urine RBC (0-2/HPF) Urine WBC (0-5/HPF) Ur Epithelial Cells (NONE-FEW) Urine Bacteria (NEGATIVE) Hyaline Casts (0-2/LPF) 01/28/19 Range/Units 06:16 WBC (4.0-11.0) K/uL RBC (4.30-5.90) M/uL Hgb (12.0-16.0) g/dL Hct (36.0-46.0) % MCV (80.0-98.0) fL MCH (27.0-32.0) pg MCHC (31.0-37.0) g/dL RDW Std Deviation (28.0-62.0) fl RDW Coeff of Stefani (11.0-15.0) % Plt Count (150-400) K/uL MPV (7.40-12.00) fL Neut % (Auto) (48.0-80.0) % Lymph % (Auto) (16.0-40.0) % [place] % (Auto) (0.0-15.0) % Eos % (Auto) (0.0-7.0) % Baso % (Auto) (0.0-1.5) % Neut # (Auto) (1.4-5.7) K/uL Lymph # (Auto) (0.6-2.4) K/uL [place] # (Auto) (0.0-0.8) K/uL Eos # (Auto) (0.0-0.7) K/uL Baso # (Auto) (0.0-0.1) K/uL Nucleated RBC % /100WBC Nucleated RBCs # K/uL Sodium (136-145) mmol/L Potassium (3.5-5.1) mmol/L Chloride (98-107) mmol/L Carbon Dioxide (21.0-32.0) mmol/L BUN (7.0-18.0) mg/dL Creatinine (0.6-1.0) mg/dL Est Cr Clr Drug Dosing mL/min Estimated GFR (MDRD) ml/min Glucose (74-106) mg/dL POC Glucose (60-110) mg/dL Calcium (8.5-10.1) mg/dL Total Bilirubin (0.2-1.0) mg/dL AST (15-37) IU/L ALT (14-63) IU/L Alkaline Phosphatase (46-116) U/L Total Protein (6.4-8.2) g/dL Albumin (3.4-5.0) g/dL Globulin (2.6-4.0) g/dL Albumin/Globulin Ratio (0.9-1.6) Vitamin B12 267 (193-986) pg/mL Folate 11.10 (8.60-58.90) ng/mL Urine Color Urine Appearance Urine pH (5.0-8.0) Ur Specific [place] (1.001-1.035) Urine Protein (NEGATIVE) mg/dL Urine Glucose (UA) (NEGATIVE) mg/dL Urine Ketones (NEGATIVE) mg/dL Urine Occult Blood (NEGATIVE) Urine Nitrite (NEGATIVE) Urine Bilirubin (NEGATIVE) Urine Ictotest Urine Urobilinogen (<2.0) EU/dL Ur Leukocyte Esterase (NEGATIVE) Urine RBC (0-2/HPF) Urine WBC (0-5/HPF) Ur Epithelial Cells (NONE-FEW) Urine Bacteria (NEGATIVE) Hyaline Casts (0-2/LPF) Med Orders - Current: Current Medications Acetaminophen (Tylenol) 650 mg PO Q4H PRN PRN Reason: Pain (Mild 1-3)/fever Docusate Sodium (Colace) 100 mg PO BID PRN PRN Reason: Constipation Lisinopril/HCTZ (Lisinopril-Hctz 10-12.5 Mg) 1 tab PO DAILY [facility] Last Admin: 01/28/19 09:20 Dose: Not Given Heparin Sodium (Porcine) (Heparin Sodium) 5,000 units SUBCUT Q8HR [facility] Last Admin: 01/28/19 06:32 Dose: 5,000 units Sodium Chloride (Normal Saline) 1,000 mls @ 125 mls/hr IV ASDIRECTED [facility] Last Admin: 01/28/19 09:24 Dose: 125 mls/hr Ceftriaxone Sodium/Dextrose 1 (gm/ Premix) 50 mls @ 100 mls/hr IV Q24H [facility] Last Admin: 01/28/19 09:21 Dose: 100 mls/hr Insulin Aspart (Novolog) 0 unit SUBCUT QIDACANDBED [facility]; Protocol Last Admin: 01/28/19 07:24 Dose: Not Given Ondansetron HCl (Zofran) 4 mg IVPUSH Q6H PRN PRN Reason: Nausea/Vomiting Last Admin: 01/27/19 16:11 Dose: 4 mg Oxycodone HCl (Oxycodone) 5 mg PO Q4H PRN PRN Reason: Pain (moderate 4-6) Promethazine HCl (Phenergan) 12.5 mg IM Q6H PRN PRN Reason: Nausea/Vomiting Last Admin: 01/27/19 17:14 Dose: 12.5 mg Sodium Chloride (Saline Flush) 10 ml FLUSH ASDIRECTED PRN PRN Reason: Keep Vein Open Last Admin: 01/27/19 09:08 Dose: 10 ml Sodium Chloride (Saline Flush) 2.5 ml FLUSH ASDIRECTED PRN PRN Reason: Keep Vein Open Last Admin: 01/27/19 09:08 Dose: 2.5 ml Temazepam (Restoril) 15 mg PO BEDTIME PRN PRN Reason: Sleep Discontinued Medications Enoxaparin Sodium (Lovenox) 30 mg SUBCUT Q24H [facility] Last Admin: 01/27/19 13:01 Dose: 30 mg Heparin Sodium (Porcine) (Heparin Sodium) 5,000 units SUBCUT Q8HR [facility] Last Admin: 01/27/19 16:11 Dose: Not Given Heparin Sodium (Porcine) (Heparin Sodium) 5,000 units SUBCUT Q8HR [facility] Last Admin: 01/27/19 16:10 Dose: Not Given Sodium Chloride (Normal Saline) 1,000 mls @ 999 mls/hr IV STAT ONE Stop: 01/27/19 09:39 Last Admin: 01/27/19 09:03 Dose: 999 mls/hr Sterile Water (Sterile Water For Injection) Confirm Administered Dose 20 mls @ as directed .ROUTE .STK-MED ONE Stop: 01/27/19 09:02 Last Admin: 01/27/19 09:15 Dose: Not Given Sodium Chloride (Normal Saline) 1,000 mls @ 999 mls/hr IV .Bolus ONE Stop: 01/27/19 11:15 Last Admin: 01/27/19 10:15 Dose: 999 mls/hr Levofloxacin/Dextrose 500 mg/ (Premix) 100 mls @ 100 mls/hr IV ONETIME ONE Stop: 01/27/19 12:26 Last Admin: 01/27/19 11:40 Dose: 100 mls/hr Sodium Chloride (Normal Saline) 1,000 mls @ 150 mls/hr IV ASDIRECTED [facility] Last Infusion: 01/27/19 11:48 Dose: 100 mls/hr Insulin Aspart (Novolog) 0 unit SUBCUT ACBREAKFASTANDBED [facility]; Protocol Ondansetron HCl (Zofran) 4 mg IVPUSH ONETIME ONE Stop: 01/27/19 08:40 Last Admin: 01/27/19 09:05 Dose: 4 mg Ondansetron HCl (Zofran) 4 mg IVPUSH ONETIME ONE Stop: 01/27/19 09:11 Last Admin: 01/27/19 09:18 Dose: 4 mg Pantoprazole Sodium (Protonix Iv) 80 mg IVPUSH .BOLUS ONE Stop: 01/27/19 08:40 Last Admin: 01/27/19 09:10 Dose: 80 mg - Exam General: Alert, Oriented HEENT: Pupils Equal, Pupils Reactive, EOMI, Mucous Membr. Moist/[place] Neck: Supple Lungs: Clear to Auscultation, Normal Respiratory Effort Cardiovascular: Regular Rate, Regular Rhythm GI/Abdominal Exam: Normal Bowel Sounds, Soft, Non-Tender, No Organomegaly, No Distention, No Abnormal Bruit, No Mass, Pelvis Stable Back Exam: No: CVA Tenderness (L), CVA Tenderness (R) Extremities: Normal Inspection, Normal Range of Motion, Non-Tender, No Pedal Edema, Normal Capillary Refill Peripheral Pulses: 2+: Dorsalis Pedis (L), Dorsalis Pedis (R) Skin: Warm, Dry, Intact Psy/Mental Status: Alert, Normal Affect, Normal Mood - Problem List Review Problem List Initiated/Reviewed/Updated: Yes - My Orders Last 24 Hours: My Active Orders 01/28/19 08:21 Ready for Discharge [RC] PER UNIT ROUTINE - Plan Plan:: Assessment: #1. MERY - improving #2. Acute dehydration - improved #3. Nausea and vomiting - resolved #4. Normocytic anemia Plan: #1. Continue IV fluids NS 125ml/h. Will recheck kidney function tomorrow AM. She appears clinically improved. Will decide tomorrow what diabetes medication she should be on. I think her GI disturbance can be from Ozempic. She says that she tolerated Amaryl well in the past. Metformin likely is not a good medication for her if her kidney function doesn't improve. She refuses lantus. #2. B12 was checked because of her normocytic anemia. It is low end of normal. She likely has malabsorption because of metformin use. She will benefit from weekly IM injections that should be started as an outpatient by her provider. She would also benefit from folic acid supplementation. #3. Anticipate discharge tomorrow
[2019-01-29] MEDS: Sodium Chloride 0.9% 1,000 ML IV SCH (02:46)
[2019-01-29] MEDS: Heparin Sodium 5,000 Units/ML Vial SUBCUT SCH (06:29)
[2019-01-29] MEDS: Insulin Aspart 100 Units/ML 3 ML Pen SUBCUT SCH (06:49)
[2019-01-29] MEDS: cefTRIAXone 1 GM in Premix Bag 1 BAG IV SCH (08:54)
[2019-01-29 08:57] VITALS: BP 151/71
--- NOTE | 2019-01-29 09:21 | PCM.DCSUM1 ---
Discharge Summary - Hospital Course Free Text/Narrative:: Admission date: 01/27/2019 Discharge date: 01/29/2019 Admission diagnosis: #1. MERY #2. UTI #3. Intractable nausea and vomiting #4. Hypertension #5. T2DM #6. Obesity Discharge diagnosis: #1. MERY - improved #2. UTI #3. T2DM #4. Obesity #5. Hypertension #6. Normocytic anemia Hospital course: 58F admitted for intractable nausea, vomiting, MERY from dehydration. She was treated with IV fluids, insulin sliding scale. She was also found to have a UTI for which she was treated with IV rocephin. Patient clinically improved considerably by the next morning. Her Creatinine went from 3.4 - 2.0, 1.3 on day 3. She no longer had any nausea or vomiting, fever, or dysuria. A1c obtained was 7.1%. She was on Metformin and Ozempic at home. Ozempic was started recently, which I believe may have been the cause of her nausea and vomiting, so this has been discontinued. She has taken amaryl in the past, which she said she tolerated. Thus, she'll go home on Metformin, Amaryl. Will treat UTI w/ keflex at home. She was also incidentally found to have a normocytic anemia. B12 levels were low normal. This should be investigated further as an outpatient. She will benefit from IM b12 injections weekly. Diagnosis: Stroke: No - Discharge Data Discharge Date: 01/29/19 Discharge Disposition: Home, Self-Care 01 Condition: Stable - Patient Instructions Diet: Diabetic Diet Activity: As Tolerated Driving: May Drive Today Showering/Bathing: May Shower Notify Provider of: Fever, Increased Pain, Swelling and Redness, Drainage, Nausea and/or Vomiting - Discharge Plan Prescriptions/Med Rec: Cephalexin [Keflex] 500 mg PO Q12H 5 Days #10 capsule Glimepiride [Amaryl] 1 mg PO WITHBREAKFAST 30 Days #30 tab Home Medications: Home Meds Lisinopril/Hydrochlorothiazide [Lisinopril-HCTZ 10-12.5 MG] 2 tab PO DAILY 01/27 [History] metFORMIN HCl [Metformin HCl] 1,000 mg PO BID 01/27/19 [History] Cephalexin [Keflex] 500 mg PO Q12H 5 Days #10 capsule 01/29/19 [Rx] Glimepiride [Amaryl] 1 mg PO WITHBREAKFAST 30 Days #30 tab 01/29/19 [Rx] Patient Handouts: Nausea and Vomiting, Adult, [id number], Urinary Tract Infection, Adult, Cephalexin tablets or capsules Referrals: Deondre Sandoval,Clinic [Ordering Only Provider] - Aure Myers, [employer] [Nurse Practitioner] - - Discharge Summary/Plan Comment DC Time >30 min.: No - Patient Data Vitals - Most Recent: Last Vital Signs Temp 36.6 C 01/29/19 08:00 Pulse 94 01/29/19 08:00 Resp 16 01/29/19 08:00 BP 151/71 H 01/29/19 08:00 Pulse Ox 98 01/29/19 08:00 Weight - Most Recent: 85.8 kg I&O - Last 24 hours: Intake & Output 01/28/19 01/29/19 01/29/19 22:59 06:59 14:59 Intake Total 1922 2608 170 Output Total 1500 1500 Balance 422 1108 170 Lab Results - Last 24 hrs: Laboratory Results - last 24 hr 01/28/19 01/28/19 01/28/19 Range/Units 11:34 17:31 20:38 Sodium (136-145) mmol/L Potassium (3.5-5.1) mmol/L Chloride (98-107) mmol/L Carbon Dioxide (21.0-32.0) mmol/L BUN (7.0-18.0) mg/dL Creatinine (0.6-1.0) mg/dL Est Cr Clr Drug Dosing mL/min Estimated GFR (MDRD) ml/min Glucose (74-106) mg/dL POC Glucose 109 97 152 H (60-110) mg/dL Calcium (8.5-10.1) mg/dL 01/29/19 01/29/19 Range/Units 05:27 06:52 Sodium 139 (136-145) mmol/L Potassium 3.5 (3.5-5.1) mmol/L Chloride 106 (98-107) mmol/L Carbon Dioxide 24.8 (21.0-32.0) mmol/L BUN 24 H (7.0-18.0) mg/dL Creatinine 1.3 H (0.6-1.0) mg/dL Est Cr Clr Drug Dosing 43.08 mL/min Estimated GFR (MDRD) 41.8 ml/min Glucose 92 (74-106) mg/dL POC Glucose 94 (60-110) mg/dL Calcium 8.0 L (8.5-10.1) mg/dL Med Orders - Current: Current Medications Acetaminophen (Tylenol) 650 mg PO Q4H PRN PRN Reason: Pain (Mild 1-3)/fever Docusate Sodium (Colace) 100 mg PO BID PRN PRN Reason: Constipation Lisinopril/HCTZ (Lisinopril-Hctz 10-12.5 Mg) 1 tab PO DAILY [facility] Last Admin: 01/28/19 09:20 Dose: Not Given Heparin Sodium (Porcine) (Heparin Sodium) 5,000 units SUBCUT Q8HR [facility] Last Admin: 01/29/19 06:29 Dose: 5,000 units Sodium Chloride (Normal Saline) 1,000 mls @ 125 mls/hr IV ASDIRECTED [facility] Last Admin: 01/29/19 02:46 Dose: 125 mls/hr Ceftriaxone Sodium/Dextrose 1 (gm/ Premix) 50 mls @ 100 mls/hr IV Q24H [facility] Last Admin: 01/29/19 08:54 Dose: 100 mls/hr Insulin Aspart (Novolog) 0 unit SUBCUT QIDACANDBED [facility]; Protocol Last Admin: 01/29/19 06:49 Dose: Not Given Ondansetron HCl (Zofran) 4 mg IVPUSH Q6H PRN PRN Reason: Nausea/Vomiting Last Admin: 01/27/19 16:11 Dose: 4 mg Oxycodone HCl (Oxycodone) 5 mg PO Q4H PRN PRN Reason: Pain (moderate 4-6) Promethazine HCl (Phenergan) 12.5 mg IM Q6H PRN PRN Reason: Nausea/Vomiting Last Admin: 01/27/19 17:14 Dose: 12.5 mg Sodium Chloride (Saline Flush) 10 ml FLUSH ASDIRECTED PRN PRN Reason: Keep Vein Open Last Admin: 01/27/19 09:08 Dose: 10 ml Sodium Chloride (Saline Flush) 2.5 ml FLUSH ASDIRECTED PRN PRN Reason: Keep Vein Open Last Admin: 01/27/19 09:08 Dose: 2.5 ml Temazepam (Restoril) 15 mg PO BEDTIME PRN PRN Reason: Sleep Discontinued Medications Enoxaparin Sodium (Lovenox) 30 mg SUBCUT Q24H [facility] Last Admin: 01/27/19 13:01 Dose: 30 mg Heparin Sodium (Porcine) (Heparin Sodium) 5,000 units SUBCUT Q8HR [facility] Last Admin: 01/27/19 16:11 Dose: Not Given Heparin Sodium (Porcine) (Heparin Sodium) 5,000 units SUBCUT Q8HR [facility] Last Admin: 01/27/19 16:10 Dose: Not Given Sodium Chloride (Normal Saline) 1,000 mls @ 999 mls/hr IV STAT ONE Stop: 01/27/19 09:39 Last Admin: 01/27/19 09:03 Dose: 999 mls/hr Sterile Water (Sterile Water For Injection) Confirm Administered Dose 20 mls @ as directed .ROUTE .STK-MED ONE Stop: 01/27/19 09:02 Last Admin: 01/27/19 09:15 Dose: Not Given Sodium Chloride (Normal Saline) 1,000 mls @ 999 mls/hr IV .Bolus ONE Stop: 01/27/19 11:15 Last Admin: 01/27/19 10:15 Dose: 999 mls/hr Levofloxacin/Dextrose 500 mg/ (Premix) 100 mls @ 100 mls/hr IV ONETIME ONE Stop: 01/27/19 12:26 Last Admin: 01/27/19 11:40 Dose: 100 mls/hr Sodium Chloride (Normal Saline) 1,000 mls @ 150 mls/hr IV ASDIRECTED [facility] Last Infusion: 01/27/19 11:48 Dose: 100 mls/hr Insulin Aspart (Novolog) 0 unit SUBCUT ACBREAKFASTANDBED [facility]; Protocol Ondansetron HCl (Zofran) 4 mg IVPUSH ONETIME ONE Stop: 01/27/19 08:40 Last Admin: 01/27/19 09:05 Dose: 4 mg Ondansetron HCl (Zofran) 4 mg IVPUSH ONETIME ONE Stop: 01/27/19 09:11 Last Admin: 01/27/19 09:18 Dose: 4 mg Pantoprazole Sodium (Protonix Iv) 80 mg IVPUSH .BOLUS ONE Stop: 01/27/19 08:40 Last Admin: 01/27/19 09:10 Dose: 80 mg
[2019-01-29] MEDS: Lisinopril/Hydrochlorothiazide 10-12.5 MG Tab PO SCH (10:14)
== END 2019-01-29 11:30 | disposition home or self-care (01) ==
LOC: MW.ED 08:30 → MW.MS 12:09
PROVIDERS: ADMIT Internal Medicine; ATTEND Internal Medicine
DX: N17.9 Acute kidney failure, unspecified (principal); N39.0 Urinary tract infection, site not specified; E11.9 Type 2 diabetes mellitus without complications; I10 Essential (primary) hypertension; D64.9 Anemia, unspecified; E86.0 Dehydration; E66.9 Obesity, unspecified; Z68.30 Body mass index [BMI] 30.0-30.9, adult; Z79.84 Long term (current) use of oral hypoglycemic drugs; Z79.899 Other long term (current) drug therapy; Z88.0 Allergy status to penicillin; Z88.2 Allergy status to sulfonamides
CPT/HCPCS: 36415; 80048; 80053; 81001; 82009; 82150; 82607; 82746; 82962; 83036; 83690; 85025; 86677; 96361; 96365; 96366; 96367; 96372; 96375; 96376; 99284; A9270; C9113; G0378; J0696; J1644; J1650; J1815; J1956; J2405; J2550; J7040

== ENCOUNTER 2019-10-21 16:26 | Emergency (ER) | payer BC ==
[2019-10-21] MEDS ORDERED: cloNIDine 0.1 MG Tab PO ONE ×3 (16:57→18:34)
[2019-10-21 17:52] LABS: CARBON DIOXIDE,CO2 25.6 mmol/L (21.0-32.0); POTASSIUM,K 4.4 mmol/L (3.5-5.1)
--- NOTE | 2019-10-21 18:26 | EDM.PDOC ---
ED HPI GENERAL MEDICAL PROBLEM - General Chief Complaint: Cardiovascular Problem Stated Complaint: HIGH BLOOD PRESSURE Time Seen by Provider: 10/21/19 18:26 Source of Information: Reports: Patient - History of Present Illness INITIAL COMMENTS - FREE TEXT/NARRATIVE: HISTORY AND PHYSICAL: History of present illness: [Patient presents with hypertension she has had headache for the last day or 2 checked her blood pressure it was elevated today on arrival I did give her 0.1 of clonidine blood pressures improved from 220/108 to currently 174 over 80s] No fever nausea vomiting chills sweats no chest pain shortness of breath headache dizziness palpitation no bowel or urine symptoms Headac 2 out of 10 resolved with improvement of blood pressure has history of hematuria proteinuria are followed by pressure dispatcher White coat syndrome Review of systems: As per history of present illness and below otherwise all systems reviewed and negative. Past medical history: As per history of present illness and as reviewed below otherwise noncontributory. Surgical history: As per history of present illness and as reviewed below otherwise noncontributory. Social history: No reported history of drug or alcohol abuse. Family history: As per history of present illness and as reviewed below otherwise noncontributory. Physical exam: HEENT: Atraumatic, normocephalic, pupils reactive, negative for conjunctival pallor or scleral icterus, mucous membranes moist, throat clear, neck supple, nontender, trachea midline. Lungs: Clear to auscultation, breath sounds equal bilaterally, chest nontender. Heart: S1S2, regular, negative for clicks, rubs, or JVD. Abdomen: Soft, nondistended, nontender. Negative for masses or hepatosplenomegaly. Negative for costovertebral tenderness. Pelvis: Stable nontender. Genitourinary: Deferred. Rectal: Deferred. Extremities: Atraumatic, negative for cords or calf pain. Neurovascular unremarkable. Neuro: Awake, alert, oriented. Cranial nerves II through XII unremarkable. Cerebellum unremarkable. Motor and sensory unremarkable throughout. Exam nonfocal. Diagnostics: [cbcCMP UA ] Therapeutics: [clonodine 0.1 ] With primary care within 2 weeks for adjustment of blood pressure medications Impression: [htn-proved Chronic history baseline] Definitive disposition and diagnosis as appropriate pending reevaluation and review of above. Head Pain Score (Numeric/FACES): 2 - Related Data Allergies Allergy/AdvReac Type Severity Reaction Status Date / Time amoxicillin Allergy Itching Verified 10/21/19 16:49 Sulfa (Sulfonamide Allergy Itching Verified 10/21/19 16:49 Antibiotics) -statins Allergy Body Aches Uncoded 10/21/19 16:49 Home Meds: Home Meds Lisinopril/Hydrochlorothiazide [Lisinopril-HCTZ 10-12.5 MG] 2 tab PO DAILY 01/27 [History] metFORMIN HCl [Metformin HCl] 1,000 mg PO BID 01/27/19 [History] Glimepiride [Amaryl] 1 mg PO WITHBREAKFAST 30 Days #30 tab 01/29/19 [Rx] Irbesartan 300 mg PO ASDIRECTED 10/21/19 [History] Past Medical History HEENT History: Reports: Allergic Rhinitis Cardiovascular History: Reports: Hypertension, Other (See Below) 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 Respiratory History: Reports: None Gastrointestinal History: Reports: None Genitourinary History: Reports: Chronic Renal Insuffiency, UTI, Recurrent Musculoskeletal History: Reports: None Neurological History: Reports: None Psychiatric History: Reports: None Endocrine/Metabolic History: Reports: Diabetes, Type II, Obesity/BMI 30+ Hematologic History: Reports: None Immunologic History: Reports: None Dermatologic History: Reports: None - Infectious Disease History Infectious Disease History: Reports: Chicken Pox - Past Surgical History HEENT Surgical History: Reports: Oral Surgery Social & Family History - Family History Family Medical History: Noncontributory - Tobacco Use Smoking Status *Q: Never Smoker Second Hand Smoke Exposure: No - Caffeine Use Caffeine Use: Reports: None - Recreational Drug Use Recreational Drug Use: No - Living Situation & Occupation Living situation: Reports: , with Spouse Occupation: Employed ED ROS GENERAL - Review of Systems Review Of Systems: See Below ED EXAM, GENERAL - Physical Exam Exam: See Below Course - Vital Signs Last Recorded V/S: Last Vital Signs Temp 98 F 10/21/19 16:52 Pulse 100 10/21/19 18:30 Resp 18 10/21/19 18:30 BP 216/87 H 10/21/19 18:30 Pulse Ox 99 10/21/19 18:30 - Orders/Labs/Meds Labs: Laboratory Tests 10/21/19 10/21/19 10/21/19 Range/Units 17:17 17:17 17:52 WBC 9.05 (4.0-11.0) K/uL RBC 3.95 L (4.30-5.90) M/uL Hgb 11.0 L (12.0-16.0) g/dL Hct 32.4 L (36.0-46.0) % MCV 82.0 (80.0-98.0) fL MCH 27.8 (27.0-32.0) pg MCHC 34.0 (31.0-37.0) g/dL RDW Std Deviation 40.9 (28.0-62.0) fl RDW Coeff of Stefani 14 (11.0-15.0) % Plt Count 305 (150-400) K/uL MPV 9.80 (7.40-12.00) fL Neut % (Auto) 75.1 (48.0-80.0) % Lymph % (Auto) 11.4 L (16.0-40.0) % [place] % (Auto) 9.4 (0.0-15.0) % Eos % (Auto) 3.4 (0.0-7.0) % Baso % (Auto) 0.7 (0.0-1.5) % Neut # (Auto) 6.8 H (1.4-5.7) K/uL Lymph # (Auto) 1.0 (0.6-2.4) K/uL [place] # (Auto) 0.9 H (0.0-0.8) K/uL Eos # (Auto) 0.3 (0.0-0.7) K/uL Baso # (Auto) 0.1 (0.0-0.1) K/uL Nucleated RBC % 0.0 /100WBC Nucleated RBCs # 0 K/uL Sodium 144 (136-145) mmol/L Potassium 4.4 (3.5-5.1) mmol/L Chloride 107 (98-107) mmol/L Carbon Dioxide 25.6 (21.0-32.0) mmol/L BUN 30 H (7.0-18.0) mg/dL Creatinine 1.2 H (0.6-1.0) mg/dL Est Cr Clr Drug Dosing 46.09 mL/min Estimated GFR (MDRD) 45.7 ml/min Glucose 109 H (74-106) mg/dL Calcium 9.4 (8.5-10.1) mg/dL Total Bilirubin 0.4 (0.2-1.0) mg/dL AST 11 L (15-37) IU/L ALT 16 (14-63) IU/L Alkaline Phosphatase 62 (46-116) U/L Total Protein 6.7 (6.4-8.2) g/dL Albumin 3.5 (3.4-5.0) g/dL Globulin 3.2 (2.6-4.0) g/dL Albumin/Globulin Ratio 1.1 (0.9-1.6) Urine Color YELLOW Urine Appearance HAZY Urine pH 5.5 (5.0-8.0) Ur Specific [place] >= 1.030 (1.001-1.035) Urine Protein >=300 H (NEGATIVE) mg/dL Urine Glucose (UA) NEGATIVE (NEGATIVE) mg/dL Urine Ketones TRACE H (NEGATIVE) mg/dL Urine Occult Blood MODERATE H (NEGATIVE) Urine Nitrite NEGATIVE (NEGATIVE) Urine Bilirubin NEGATIVE (NEGATIVE) Urine Urobilinogen 0.2 (<2.0) EU/dL Ur Leukocyte Esterase NEGATIVE (NEGATIVE) Urine RBC 0-2 (0-2/HPF) Urine WBC 1-2 (0-5/HPF) Ur Epithelial Cells OCCASIONAL (NONE-FEW) Amorphous Sediment RARE (NEGATIVE) Urine Bacteria FEW (NEGATIVE) Urine Mucus RARE (NONE-MOD) Urinalysis Comment Meds: Medications Discontinued Medications Generic Name Dose Route Start Last Admin Trade Name Andrade PRN Reason Stop Dose Admin Clonidine HCl 0.1 mg 10/21/19 16:57 10/21/19 17:50 Catapres PO 10/21/19 16:58 0.1 mg ONETIME ONE Administration Clonidine HCl 0.1 mg 10/21/19 18:34 Catapres PO 10/21/19 18:35 ONETIME ONE Clonidine HCl 0.1 mg 10/21/19 18:34 Catapres PO 10/21/19 18:35 ONETIME ONE Departure - Departure Time of Disposition: 18:40 Disposition: Home, Self-Care 01 Condition: Good Clinical Impression: Hypertension Qualifiers: Hypertension type: essential hypertension Qualified Code(s): I10 - Essential ( primary) hypertension Forms: ED Department Discharge Additional Instructions: Continue home medication as directed Return if symptoms persist or worsen follow With primary care within 2 weeks for medication adjustment The following information is given to patients seen in the emergency department who are being discharged to home. This information is to outline your options for follow-up care. We provide all patients seen in our emergency department with a follow-up referral. The need for follow-up, as well as the timing and circumstances, are variable depending upon the specifics of your emergency department visit. If you don't have a primary care physician on staff, we will provide you with a referral. We always advise you to contact your personal physician following an emergency department visit to inform them of the circumstance of the visit and for follow-up with them and/or the need for any referrals to a consulting specialist. The emergency department will also refer you to a specialist when appropriate. This referral assures that you have the opportunity for follow-up care with a specialist. All of these measure are taken in an effort to provide you with optimal care, which includes your follow-up. Under all circumstances we always encourage you to contact your private physician who remains a resource for coordinating your care. When calling for follow-up care, please make the office aware that this follow-up is from your recent emergency room visit. If for any reason you are refused follow-up, please contact the [facility] emergency department at and asked to speak to the emergency department charge nurse. Sepsis Event Note - Evaluation Sepsis Screening Result: No Definite Risk - Focused Exam Vital Signs: Vital Signs Temp Pulse Resp BP BP Pulse Ox 10/21/19 18:30 100 18 216/87 H 99 10/21/19 17:50 95 18 200/95 H 200/95 H 98 10/21/19 16:52 98 F 107 H 18 202/97 H 97 Date Exam was Performed: 10/21/19 Time Exam was Performed: 18:38
[2019-10-21 18:45] VITALS: BP 174/83; PULSE 98
== END 2019-10-21 18:53 | disposition home or self-care (01) ==
LOC: MW.ED 16:26
DX: I12.9 Hypertensive chronic kidney disease with stage 1 through stage 4 chronic kidney disease, or unspecified chronic kidney disease (principal); N18.9 Chronic kidney disease, unspecified; E11.22 Type 2 diabetes mellitus with diabetic chronic kidney disease; E66.9 Obesity, unspecified; Z98.890 Other specified postprocedural states; Z88.1 Allergy status to other antibiotic agents; Z88.2 Allergy status to sulfonamides; Z79.84 Long term (current) use of oral hypoglycemic drugs; Z79.899 Other long term (current) drug therapy
CPT/HCPCS: 36415; 80053; 81001; 85025; 99283; A9270

== ENCOUNTER 2023-10-01 09:39 | Emergency (ER) | payer BC, MEDICARE ==
[2023-10-01] MEDS ORDERED: Sodium Bicarbonate 8.4% 50 MEQ/50 ML Syringe IVPUSH ONE (09:40)
[2023-10-01] MEDS ORDERED: EPINEPHrine 1 MG/1 ML Amp IVPUSH ONE (09:40)
== END 2023-10-01 09:46 | disposition expired ==
LOC: MW.ED 09:39
DX: I46.9 Cardiac arrest, cause unspecified (principal); I10 Essential (primary) hypertension; E11.9 Type 2 diabetes mellitus without complications; E66.9 Obesity, unspecified; Z79.84 Long term (current) use of oral hypoglycemic drugs; Z79.899 Other long term (current) drug therapy; Z88.2 Allergy status to sulfonamides; Z88.0 Allergy status to penicillin; Z68.36 Body mass index [BMI] 36.0-36.9, adult
CPT/HCPCS: 31500; 92950; 99285; J0171; J3490